=== PATIENT | female | born 1990 | race Caucasian/White ===

== ENCOUNTER 2020-02-07 11:35 | Emergency (ER) | payer BC, OTHER ==
[2020-02-07 11:45] VITALS: BP 137/85
--- NOTE | 2020-02-07 12:06 | ED Physician Documentation ---
History of Present Illness - Stated complaint Stated Complaint: L EAR PAIN - Chief complaint Chief Complaint: Heent - History obtained from History obtained from: Patient (This pleasant 30-year-old female comes in today with a chief complaint of left ear fullness, itching, foul smeling drainage starting approximately 10 days ago. She is a [employer] worker in the [employer]. 10 days ago she states that she had some postnasal drip, sinus pressure and then a few days later started having left ear drainage. She has noted that the drainage is got worse over the last several days and the smell is gotten worse. She is without fevers, coughs, headaches, chills, nausea, vomiting or diarrhea.) Review of Systems Constitutional: reports: Reviewed and negative Eyes: reports: Reviewed and negative Ears: reports: Drainage/discharge Nose: reports: Reviewed and negative Throat: reports: Reviewed and negative Cardiac: reports: Reviewed and negative Respiratory: reports: Reviewed and negative GI: reports: Reviewed and negative : reports: Reviewed and negative Neurologic: reports: Reviewed and negative Immunocompromised: reports: Reviewed and negative PD PAST MEDICAL HISTORY - Past Medical History Cardiovascular: None Respiratory: None Neuro: None GI: None HEENT: None - Present Medications Home Medications: Ambulatory Orders Medication Instructions Recorded Confirmed Neomycin/Polymyxin B Sulf/Hc 10 ml OT TID #1 drops.susp 02/07/20 [Ogyziouo-Swnstnzgy-We Ear Susp] - Allergies Allergies/Adverse Reactions: Allergies Allergy/AdvReac Type Severity Reaction Status Date / Time ciprofloxacin [From Cipro] Allergy Emesis Verified 02/07/20 11:42 Penicillins Allergy Unknown Verified 02/07/20 11:42 PD ED PE NORMAL - Vitals Vital signs reviewed: Yes - General General: Alert and oriented X 3, No acute distress, Well developed/nourished - HEENT HEENT: Atraumatic, PERRL, EOMI, Moist mucous membranes, Pharynx benign - Neck Neck: No adenopathy - Cardiac Cardiac: RRR, No murmur, No gallop - Respiratory Respiratory: No respiratory distress, Clear bilaterally PD ED PE EXPANDED - HEENT HEENT: Other (Left ear canal with edema, erythema, purulent odiferous material draining from the ear area.) Results - Vitals Vitals: Vital Signs - 24 hr 02/07/20 11:42 Temperature 36.8 C Heart Rate 70 Respiratory 18 Rate Blood Pressure 137/85 H O2 Saturation 100 Oxygen O2 Source Room air PD MEDICAL DECISION MAKING - ED course Complexity details: re-evaluated patient, considered differential, d/w patient Departure - Departure Disposition: 01 Home, Self Care Clinical Impression: Otitis externa Qualifiers: Otitis externa type: unspecified type Chronicity: unspecified Laterality: left Qualified Code(s): H60.92 - Unspecified otitis externa, left ear Condition: Good Instructions: ED Otitis Externa Prescriptions: Neomycin/Polymyxin B Sulf/Hc [Ctxkrnew-Dwsmrxxaq-Gr Ear Susp] 10 ml OT TID #1 drops.susp Comments: As we discussed in the ER today, you have otitis externa of the left ear canal. You have been prescribed medication to put in your ear 3-4 times a day for the next 7 to 10 days. You can use ibuprofen or Tylenol for any ear pain. The culture of your ear will take 3 to 4 days to come back, once it does they will verify the antibiotic medication is appropriate to the organism growing in your ear. If it is any different they will contact you and change the medication. If your symptoms fail to start improving the next 3 to 5 days you may follow-up with your primary care physician for further evaluation, Order symptoms worsen before then you are welcome to return to the ER for further evaluation.
== END 2020-02-07 12:18 | disposition home or self-care (01) ==
LOC: ED 11:35
DX: H60.92 Unspecified otitis externa, left ear (principal)
CPT/HCPCS: 87070; 99283; 99284